=== PATIENT | male | born 1980 | race Caucasian/White ===

== ENCOUNTER 2025-04-28 23:41 | Inpatient (IN) | payer OTHER, SELFPAY ==
[2025-04-28] VITALS (29 sets, daily range): BP systolic 82–121; BP diastolic 33–82; BMI 29.3
[2025-04-28] MEDS: NARCAN 0.4 MG IV (21:30)
[2025-04-28] MEDS: DUONEB 3 ML INH (21:31)
[2025-04-28] MEDS: VENTOLIN NEBULES 2.5 MG INH (21:32)
[2025-04-28] MEDS: NSS 1000 IV (21:33)
[2025-04-28 21:36] LABS: % Basophils 0.2 % (0-2); % Immature Granulocytes 0.4 % (0-0.5); % Lymphocytes 4.2 % (20.5-51.1); % Monocytes 1.7 % (1.7-9.3); % Neutrophils 93.5 % (42.2-75.2); Absolute Immature Granulocytes 0.1 10^3/uL (0-0.05); Absolute Lymphocytes 0.8 10^3/uL (1.2-3.4); Absolute Monocytes 0.3 10^3/uL (0.1-0.6); Absolute Neutrophils 17.7 10^3/uL (1.4-6.5); Hematocrit 49.5 % (39.0-52.0); Mean Corp Hgb Conc. 34.3 g/dL (33.0-37.0); Mean Corpuscular Hgb 30.9 pg (27.0-31.0); Mean Corpuscular Volume 89.8 fL (80.0-94.0); Mean Platelet Volume 9.6 fL (7.4-10.4); Nucleated Red Blood Cells % 0 % (-); Platelet Count 215 10^3/uL (130-400); Red Blood Cell Count 5.51 10^6/uL (4.70-6.10); Red Cell Dist. Width 12.3 % (11.5-14.5); White Blood Cell Count 18.9 10^3/uL (4.8-10.8)
--- NOTE | 2025-04-28 21:41 | ED.GENMED ---
History of Present Illness
General
Chief Complaint: Breathing Problem
Source: patient, records and other (ammonia technician present)
Exam Limitations: altered mental status
Time Seen by Provider: 04/28/25 21:07
Nursing documentation reviewed up to this point in time: agreed with
History of Present Illness
History of Present Illness:
45-year-old male presents from the local longterm where he has been for 3 hours confused hypoxic and respiratory distress
Details are unclear as he is obtunded, requiring supplemental oxygen, follows simple commands only, pupils are 2-3 OU, transfer no shows prescription for Levaquin and steroids unclear if he had received any or how many doses patient apparently told
nursing here that he does not use drugs or alcohol
Past History
Past History
ED Past Medical History: Other
ED Past Surgical History: Other
Social History
Tobacco: Other
Alcohol: Other
Drug: Other
Living: other
Employment: Other
Family History
Family History: Unable to obtain
Review of Systems
Review of Systems
Unable to obtain full review of systems at this time due to: due to acuity
Phy Exam
Physical Exam
Physical Exam:
Physical Exam
General: Minimally responsive 45 male
Neck: Pupils 2-3 OU
Heart: Tachycardic
Lungs: Wheezing diminished in the right
Abdomen: Soft
Neuro: Moves all extremities localize the painful
Skin: no rash
Psychiatric: Flat affect
Extremities: Trace edema no calf no obvious tract
Course
Orders/Labs/Results
Orders:
Orders
04/28/25 21:03
EKG [Electrocardiogram (*1)] Urgent
Reason for Study: Fatigue / Weakness
04/28/25 21:04
EKG- Treatment ONCE
04/28/25 21:07
Ipratropium/Albuterol Sulfate [Duoneb] 3 ml .ROUTE .STK-MED ONE
04/28/25 21:17
Cardiac Monitoring- Treatment ONCE
IV Insert/Care/Rem.- Treatment PRN
0.9% Sodium Chloride 1000 ml [Nss] 1,000 ml IV BOLUS
Albuterol Nebs [Ventolin Nebules] 2.5 mg INH R NOW STA
O2 Therapy [RESP] Stat
Titrate/Wean O2 to maintain O2 sat greater than (%): 98
04/28/25 21:18
Naloxone [Narcan] 0.4 mg .ROUTE .STK-MED ONE
Naloxone [Narcan] 0.4 mg IV NOW STA
CR Chest Portable - 1 View Urgent
Comment:
Reason For Exam: SOB
Reason Study Needs to be Portable: Unable to Transport
04/28/25 21:23
Alcohol Urgent
Complete Blood Count/With Diff Urgent
Comprehensive Metabolic Panel Urgent
Creatine Phosphokinase Urgent
Comment: ADD ON
Lactic Acid Q4H
Comment: CANCEL 2nd LACTIC ACID IF 1st LACTIC ACID IS LESS THAN 2
Blood Culture Q30M
SHIELA Source: Blood/Venous
Specimen Description:
04/28/25 21:24
Ipratropium/Albuterol Sulfate [Duoneb] 3 ml INH R NOW STA
04/28/25 21:31
Piperacillin/Tazo 3.375 Gram [Zosyn] 3.375 gram in 50 ml IV NOW
04/28/25 21:39
Arterial Blood Gas Urgent
%Oxygen/Room Air: NRB
04/28/25 21:41
CT Head W/o Iv Contrast Urgent
Comment:
Reason For Exam: STUPOR
04/28/25 21:58
Blood Culture Q30M
SHIELA Source: Blood/Venous
Specimen Description:
04/28/25 22:07
0.9% Sodium Chloride 1000 ml [Nss] 2,000 ml IV BOLUS
04/28/25 22:28
COVID-19 Antigen Urgent
Source: Nasal Swab
Drug Screen, Urine [Urine Drug Abuse Screen] Urgent
Date Specimen was Collected: 04/28/25
Time Specimen was Collected: 22:25
Fentanyl, Urine Urgent
Influenza A+B Rapid Molecular Urgent
SHIELA Source: Nasal Swab
Specimen Description:
04/28/25 22:37
Vancomycin [Vancocin] 2,000 mg 0.9% Sodium Chloride 500 ml [Nss] 500 ml IV NOW
EEG [Rapid Point of Care EEG (ED/ICU ONLY)] Q1H
Indications for use:: Altered Mental Status
04/28/25 22:45
Rectal Temp- Treatment ONCE
04/28/25 22:54
Add On- LAB Urgent
Tests Added?: CPK
Pham Placement- Treatment ONCE
Reason for insertion: I&O's Critical Care
04/29/25 01:30
Lactic Acid Q4H
Comment: CANCEL 2nd LACTIC ACID IF 1st LACTIC ACID IS LESS THAN 2
Abnormal Lab Results
04/28/25 04/28/25 04/28/25
21:23 21:39 22:28
WBC 18.9 H 10^3/uL
(4.8-10.8)
Abs Immat Gran (auto) 0.1 H 10^3/uL
(0-0.05)
Absolute Neuts (auto) 17.7 H 10^3/uL
(1.4-6.5)
Absolute Lymphs (auto) 0.8 L 10^3/uL
(1.2-3.4)
Neutrophils % 93.5 H %
(42.2-75.2)
Lymphocytes % 4.2 L %
(20.5-51.1)
pH 7.33 L
(7.35-7.45)
pCO2 50 H mmHg
(35-48)
ABG O2 Sat (Measured) 98.8 H %
(94-98)
BUN 28 H mg/dl
(9-20)
Creatinine 1.6 H mg/dL
(0.7-1.3)
Glucose 128 H mg/dl
(70-99)
Total Bilirubin 1.7 H mg/dl
(0.2-1.3)
Urine Opiates Screen Positive H
(Negative)
Ur Tricyclics Screen Positive H
(Negative)
Ur Amphetamines Screen Positive H
(Negative)
U Methamphetamines Scrn Positive H
(Negative)
04/28/25 21:23
04/28/25 21:23
Vital Signs
Initial and Last Documented VS:
Initial Vital Signs
Pulse Resp BP
105 12 101/59
04/28/25 21:03 04/28/25 21:03 04/28/25 21:03
Last Documented Vital Signs
Temp Pulse Resp BP Pulse Ox
98.1 F 92 16 91/60 91
04/28/25 21:11 04/28/25 23:00 04/28/25 23:00 04/28/25 23:00 04/28/25 23:00
MDM/Problems Addressed
Differential Diagnosis Includes:
Hypoxic respiratory failure hypercarbic respiratory failure pneumonia sepsis drug overdose intracerebral hemorrhage aspiration seizure
MDM/Problems Addressed:
Respiratory distress confusion
*Radiology
Radiology exam reviewed: preliminary read by ED provider
*Pulse Oximetry
Patient hypoxic: yes
Comment: 85
*EKG
Interpreted by ED Provider?: Yes
Interpretation: normal
Comparison EKG: no comparison EKG present
Heart Rate: 78
Rate: normal
Ischemia: non-specific ST changes
*Key Worker Interpretation
Rate: normal
Interpretation: normal
Heart Rate: 78
Rhythm: sinus
*Critical Care Note
Total Time (30-74mins, 75-104mins- exclusive of procedures): 30
Update Note
Update Note:
Update check ABG try small dose of Narcan CT of the head broad-spectrum antibiotics following resuscitation follow closely
Update patient still obtunded ABG noted, CT of the head noted, apparently did not respond to Pham catheter placement, UDS noted, will check urgent EEG this evening continue to provide supportive care
ED Attending Note
-
Portions of this chart may have been created with voice recognition software.� Occasional wrong word or��sound alike� substitutions may have occurred due to the inherent limitations of voice recognition software.
Discharge Plan
Departure
Patient Disposition: Admit
Date of Disposition: 04/28/25
Time of Disposition: 22:11
Presentation/result/management discussed w/ accepting MD/DO: Hospitalist
Condition: Serious
Covid-19: Not Applicable
Discharge Problem:
Sepsis
Prescriptions:
No Action
Unobtainable
0
Referrals:
UNKNOWN - PT DOES,NOT KNOW [Family Provider]
Interventions
Interventions:
*Risk Screen - Suicide Last Done: 04/28/25 21:15
*General Assessment Last Done: 04/28/25 21:15
*Neglect/Abuse Screening Last Done: 04/28/25 21:15
*ED COVID-19 Vaccine History Last Done: 04/28/25 21:15
Discharge Date and Time
Print Language: SLOVAK
[2025-04-28 21:44] LABS: Lactic Acid 1.6 mmol/L (0.7-2.0)
[2025-04-28 21:52] LABS: B.E. -0.5 mmol/L; HCO3 26.4 mmol/L (21-28); O2 Saturation % 98.8 % (94-98); PCO2 50 mmHg (35-48); PO2 95 mmHg (83-108); pH 7.33 (7.35-7.45)
[2025-04-28 21:54] LABS: ALT (SGPT) 37 U/L (0-50); AST (SGOT) 28 U/L (17-59); Albumin 4.3 g/dl (3.5-5.0); Alcohol None Detected; Alkaline Phosphatase 101 U/L (38-126); Blood Urea Nitrogen 28 mg/dl (9-20); Calcium 9.4 mg/dl (8.4-10.2); Carbon Dioxide 25 mmol/L (22-30); Chloride 101 mmol/L (98-107); Estimated Creatinine Clearance 59 ml/min; Glucose 128 mg/dl (70-99); Potassium 4.2 mmol/L (3.5-5.1); Sodium 136 mmol/L (135-145); Total Bilirubin 1.7 mg/dl (0.2-1.3); Total Protein 8.1 g/dl (6.3-8.2); eGFR 54.15
[2025-04-28] MEDS: NSS 2000 IV (22:25)
[2025-04-28] MEDS: ZOSYN 50 IV (22:29)
[2025-04-28 22:48] LABS: Amphetamines Positive (Negative); Barbiturates Negative (Negative); Benzodiazepines Negative (Negative); Buprenorphine Negative (Negative); Cocaine Negative (Negative); Marijuana Negative (Negative); Methadone Negative (Negative); Methamphetamines Positive (Negative); Opiates Positive (Negative); Phencyclidine Negative (Negative); Tricyclic Antidepressants Positive (Negative)
[2025-04-28 22:56] LABS: COVID-19 Antigen Negative (Negative)
--- NOTE | 2025-04-28 23:01 | HPS.HSE ---
Family Physician
-
Family Physician: NOT KNOW UNKNOWN - PT DOES
Chief Complaint
-
Resp Distress
History of Present Illness
Patient is a 45y M with unknown PMH who presents to ED from [facility] for evaluation of respiratory distress. History obtained from [facility] staff / ED staff. Patient was arrested about 5 hours prior to my exam / 3 hours prior to arrival in the ED.
He was awake and alert during his initial intake. Patient was reportedly wheezing, coughing and complaining of SOB during this process. He was prescribed Levaquin and steroid taper by [facility] provider - though it is not clear whether he received
any doses of these. He became progressively more SOB and was brought to the ED for evaluation.
On initial arrival in the ED, patient was awake and communicating with staff. He has since become more unresponsive.
At the time of my examination, he is asleep with minimal response to noxious stimuli. He reportedly called out in discomfort when Pham was being placed - but quickly fell back to sleep.
No additional history is obtainable at this time.
Medical History
Past Medical History
Past Medical History: Reports Other
Additional Past Medical History:
Unknown
Past Surgical History: Reports Other
Additional Past Surgical History:
Unknown
Social History
Unable to obtain full social history at this time due to: Patient Non-verbal
Family History
Family History: Unable to Obtain
Allergies / Home Medications
Allergies reflects when Allergies were last updated in [email or web address].
Home Medications with original date entered in [email or web address]
Allergy/Medication List:
Allergies
Allergy/AdvReac Type Severity Reaction Status Date / Time
No Known Allergies Allergy Unverified 04/28/25 22:01
Home Medications
Unobtainable 04/28/25
Review of Systems
-
Unable to obtain full review of systems at this time due to: Patient Non-verbal
Physical Exam
Vital Signs
Vital Signs
Temp Pulse Resp BP Pulse Ox
98.1 F 97 17 88/56 92
04/28/25 21:11 04/28/25 22:00 04/28/25 22:00 04/28/25 22:00 04/28/25 22:00
Physical Exam
General: Other (45y M poorly responsive. Withdraws from noxious stimuli briefly.)
HEENT: Other (Pinpoint, symmetric pupils. Neck supple.)
Respiratory: Other (Coarse rhonchi at R base.)
Cardiac: S1/S2 and Regular Rhythm; No Murmur
GI: Soft, Non Tender, Non Distended and Normal Bowel Sounds
Genito-urinary: Other (Pham in place draining small amount of dark urine.)
Musculoskeletal: No Clubbing, No Cyanosis and No Edema
Laboratory Results
-
04/28/25 21:23
04/28/25 21:23
Laboratory Results
pH 7.33 (7.35-7.45) L 04/28/25 21:39
pCO2 50 mmHg (35-48) H 04/28/25 21:39
pO2 95 mmHg (83-108) 04/28/25 21:39
HCO3 26.4 mmol/L (21-28) 04/28/25 21:39
Lactic Acid 1.6 mmol/L (0.7-2.0) 04/28/25 21:23
Total Bilirubin 1.7 mg/dl (0.2-1.3) H 04/28/25 21:23
AST 28 U/L (17-59) 04/28/25 21:23
ALT 37 U/L (0-50) 04/28/25 21:23
Alkaline Phosphatase 101 U/L (38-126) 04/28/25 21:23
Impression/Plan
-
A/P: Patient is a 45y M with no known PMH who presents to ED from local [facility] for evaluation of respiratory distress.
RLL Pneumonia
Acute Hypoxemic Respiratory Failure secondary to the above
Sepsis secondary to the above
- Admit to ICU for further evaluation and treatment.
- Patient presents with leukocytosis, tachycardia, tachypnea and R base pneumonia on CXR / exam.
- IV abx with Vanco / Zosyn for now.
- Supportive care including IVFs +/- pressor support to maintain perfusion.
- Supplemental O2.
- Follow for clinical improvement.
- Follow temperature curve, culture data, etc.
Polysubstance Abuse / Suspected Overdose
Acute TME secondary to the above
- Patient reportedly denied drug use to staff on initial arrival.
- CT head in the ED without acute abnormality.
- UDS done here in the ED positive for: opiates, TCAs, amphetamines / methamphetamines.
- Opioid overdose seems likely based on constricted pupils, unresponsiveness, etc.
- Supportive care. Narcan PRN for hypoventilation.
- Monitor for evidence of seizure activity due to TCA overdose.
- Monitor for evidence of withdrawal symptoms / syndromes.
RENALDO v CKD
- SCr = 1.6 with no prior baseline for comparison.
- Suspect degree of RENALDO due to sepsis, etc.
- IVF support as noted above.
- Follow for changes in renal function.
DVT Prophylaxis: Subcut Heparin
Code Status: Full
[2025-04-28 23:25] LABS: Creatine Phosphokinase 113 U/L (55-170)
--- NOTE | 2025-04-28 23:40 | EDRN ---
Despite being on 6LNC, pt.'s pulse ox. continuously drops to 85%. Pt. encouraged to take deep breaths, but pulse ox. not rising above 92% on 6LNC. Respiratory to bedside, placed pt. on high flow nasal cannula at 50L 75%. Pulse ox. now 96%.
[2025-04-28] MEDS: VANCOCIN 540 MG IV (23:48)
[2025-04-29] VITALS (55 sets, daily range): BP systolic 87–140; BP diastolic 57–100; BMI 29.6
[2025-04-29] LABS: Fentanyl, Urine Negative (Negative)
[2025-04-29 00:09] LABS: TSH 1.23 uIU/ml (0.47-4.68)
[2025-04-29] MEDS: LR 1000 IV ×3 (01:05→16:01)
[2025-04-29 03:10] LABS: Fentanyl, Urine Negative (Negative)
--- NOTE | 2025-04-29 05:30 | PTCARENOTE ---
Patient received from ED, drowsy, oriented x3. NSR, afebrile, blood pressure as documented. No edema noted. lungs with rhonch, wheezing, pulse ox 96% on HFNC 50L/70%. Pham catheer draining yellow urine. #20 g in right hand with IVF infusing as
ordered, #20 g in left hand flushed and patent. CHG bath given
[2025-04-29 05:39] LABS: Hematocrit 43.7 % (39.0-52.0); Hemoglobin 14.9 g/dL (13.0-18.0); Mean Corp Hgb Conc. 34.1 g/dL (33.0-37.0); Mean Corpuscular Hgb 30.8 pg (27.0-31.0); Mean Corpuscular Volume 90.5 fL (80.0-94.0); Mean Platelet Volume 10.1 fL (7.4-10.4); Platelet Count 181 10^3/uL (130-400); Red Blood Cell Count 4.83 10^6/uL (4.70-6.10); Red Cell Dist. Width 12.5 % (11.5-14.5); White Blood Cell Count 15.6 10^3/uL (4.8-10.8)
--- NOTE | 2025-04-29 05:58 | W.PN.SEPSIS ---
Sepsis
Vital Signs
Temp Pulse Resp BP Pulse Ox
98.0 F 84 17 102/69 95
04/29/25 05:39 04/29/25 03:00 04/29/25 03:00 04/29/25 03:00 04/29/25 05:39
Physical Exam
Physical Exam:
A focused exam was performed after fluid resuscitation.
Capillary Refill
Bilateral Upper Extremity:
Iwlian Time: Less than 3 sec
Bilateral Lower Extremity:
Wilian Time: Less than 3 sec
Pulse Evaluation
Bilateral Radial:
Pulse Evaluation: Present
Bilateral Dorsalis Pedis:
Pulse Evaluation: Present
[2025-04-29] MEDS: ZOSYN 50 IV ×3 (06:03→17:04)
[2025-04-29] MEDS: HEPARIN 5000 UNITS SC ×2 (06:03→16:01)
[2025-04-29 06:09] LABS: ALT (SGPT) 30 U/L (0-50); AST (SGOT) 23 U/L (17-59); Albumin 3.3 g/dl (3.5-5.0); Alkaline Phosphatase 70 U/L (38-126); Blood Urea Nitrogen 23 mg/dl (9-20); Calcium 8.1 mg/dl (8.4-10.2); Carbon Dioxide 24 mmol/L (22-30); Chloride 110 mmol/L (98-107); Direct Bilirubin 0.3 mg/dl (0.0-0.4); Estimated Creatinine Clearance 105 ml/min; Glucose 136 mg/dl (70-99); Magnesium 2.1 mg/dl (1.6-2.3); Phosphorus 3.2 mg/dl (2.5-4.5); Sodium 138 mmol/L (135-145); Total Bilirubin 0.9 mg/dl (0.2-1.3); Total Protein 6.2 g/dl (6.3-8.2); eGFR > 60.00
--- NOTE | 2025-04-29 07:00 | PHA.VAN.IN ---
Assessment
- Assessment
Renal Function: Unknown baseline
Concomitant Antimicrobials: piperacillin/tazobactam
AUC Dosing Plan
- Dosing Variables
Dosing Weight (kg): 90
Dosing CrCl (ml/min): 105
Vd coefficient (L/kg): 0.7
- Empiric Dosing
Initial / Loading Dose: 2000mg - 04/28 23:48
Maintenance Regimen: Vanc 1500mg Q12H starting at 1800
Estimated AUC (mcg*h/mL): 556
Estimated Peak (mcg*h/mL): 35.7
Estimated Trough (mcg/ml): 13.7
Estimated Half Life (H): 7.6
- Monitoring
No levels ordered at this time: consider levels in next few days
Pharmacokinetics Vancomycin I
- -
Patient Age: 45
Patient Sex: Male
Vancomycin Day #: 1
Indication: Pulmonary/Respiratory
Requesting Provider: Dr. Rider
Pertinent Antimicrobial Allergies:
NKDA
Height / Weight:
Height 5 ft 9 in
Actual Weight 89.8 kg
Pertinent Past Medical History: polysubstance use disorder
- Vital Signs / Lab Results
Temp Pulse Resp BP Pulse Ox
98.0 F 84 17 102/69 95
04/29/25 05:39 04/29/25 03:00 04/29/25 03:00 04/29/25 03:00 04/29/25 05:39
Lab Results - Hematology
04/28/25 04/29/25
21:23 05:29
WBC 18.9 H 15.6 H
Lab Results - Chemistry
04/28/25 04/29/25
21:23 05:29
BUN 28 H 23 H
Creatinine 1.6 H 0.9
Estimated Creat Clear 59 105
Albumin 4.3 3.3 L
04/28/25 04/29/25
21:23 01:30
Lactic Acid 1.6 Cancelled
Microbiology Results
04/28/25 22:28 Influenza Types A & B (THOMAS) - Final
Nasal Swab Negative for Influenza A & B, NAAT
Negative results must be combined with clinical observations
and patient history.
Nucleic Acid Amplification test (NAAT)performed on the
[employer] platform.
--- NOTE | 2025-04-29 07:22 | W.PN.HOSP.TC ---
Today's Communication/Plan
-
see plan
Assessment / Plan
Assessment / Plan
45y M with no known PMH who presents to ED from local [facility]way for evaluation of respiratory distress.
Gen: NAD, AAOx3.
Eyes: EOMI, PERRLA, no scleral icterus.
Neck: supple.
CV: RRR, +S1/S2, no m/r/g.
Resp: CTAB, no rales, wheezes, or rhonchi.
Abd: +BS, soft, NT, ND
Skin: No rashes.
Neuro: CN 2-12 intact, non-focal.
Psych: Normal mood and affect.
CXR: No acute disease of the chest. Limited inspiration.
CT Head: No acute intracranial abnormality.
Sepsis and acute Hypoxemic Respiratory Failure secondary to the above:
-p/w with leukocytosis, tachycardia, tachypnea
-CXR without PNA (although AP film only)
-currently on high flow
-COVID/Flu NEG
-check CTA chest
-cont IV Vanco/Zosyn
-cont IVFs
-cont Levophed
-follow BCxs
Acute toxic metabolic encephalopathy due to polysubstance abuse with suspected overdose:
-UDS opiates, tricyclics, amphetamines
-CT head in the ED without acute abnormality.
-Opioid overdose seems likely based on constricted pupils, unresponsiveness, on arrival
-Supportive care. Narcan PRN for hypoventilation.
-Monitor for evidence of seizure activity due to TCA overdose.
-Monitor for evidence of withdrawal symptoms/syndromes.
-currently AAOx3
RENALDO:
-resolved with IVFs
FULL/Heparin
Anticipated Discharge: > 48 hours
Subjective/Interval History
-
Date of Service: April 29, 2025
Reports mild SOB.
Objective Data
-
Labs:
Laboratory Results
04/28/25 04/28/25 04/29/25
21:23 21:39 05:29
WBC 18.9 H 15.6 H
Hgb 17.0 14.9
Hct 49.5 43.7
Plt Count 215 181
HCO3 26.4
Sodium 136 138
Potassium 4.2 Pending
Chloride 101 110 H
Carbon Dioxide 25 24
BUN 28 H 23 H
Creatinine 1.6 H 0.9
Glucose 128 H 136 H
Calcium 9.4 8.1 L
Total Bilirubin 1.7 H 0.9
AST 28 23
ALT 37 30
Alkaline Phosphatase 101 70
Vital Signs:
Vital Signs
Temp Pulse Resp BP Pulse Ox
97.9 F 84 17 102/69 95
04/29/25 07:19 04/29/25 03:00 04/29/25 03:00 04/29/25 03:00 04/29/25 05:39
I&O
04/28/25 04/29/25 04/30/25
06:59 06:59 06:59
Intake Total 200 / 350 150 / 150
Output Total 750 / 1200 450 / 450
Balance -550 / -850 -300 / -300
--- NOTE | 2025-04-29 08:29 | CON.INTV ---
Consultation
Consultation Request
Date/Time Consultation Requested: 04/29/2025550
Date/Time Consultation Performed: 04/29/2025826
Requesting Provider: OUMOU Ivey
Performing Provider: Dr. Burrell
Reason for Consultation: Hypoxia
Medical History
-
Chief Complaint: Altered mental status/hypoxic
History of Present Illness:
45-year-old male with a past medical history of polysubstance abuse and history of pelvic floor dysfunction presented with altered mental status and respiratory distress. Patient was arrested prior to arrival and became increasingly more altered
and was brought to the hospital for further evaluation. He was reportedly wheezing, coughing and complaining of shortness of breath. He reportedly was prescribed Levaquin and steroids but unclear if he started these medications. Due to worsening
SOB he was brought to the hospital for evaluation. He became increasingly more unresponsive. Initially he was afebrile with heart rate 105, respiratory rate 12, BP 101/59 and saturating 85% on room air. He was placed onto high flow nasal cannula
with saturations improving to 95%. Initial labs showed leukocytosis to 18.9, mild respiratory acidosis with pH 7.33, pCO2 50, creatinine 1.6, glucose 128, T. bili 1.7, UDS positive for opiates, TCA, amphetamines and methamphetamines. COVID-19
antigen was negative. Blood cultures were collected, and CXR did not show any obvious cardiopulmonary disease. CT head showed no acute intracranial abnormality. CTA of the chest was obtained given his significant hypoxia which showed severe
bilateral pneumonia. He was given 2 L of NS 0.9% in the ER + DuoNebs, albuterol, Zosyn as well as Narcan. He was admitted to the ICU for further care and silverware assembler services consulted for additional management/recommendations.
When I saw the patient this morning, he was much more awake and calm. Patient is a poor historian currently, possibly worsened due to his drowsiness. He was able to be weaned off of high flow nasal cannula down to midflow and he did not feel short
of breath during this transition. He is not really sure what happened but he does say that he has been feeling short of breath and more fatigued over the last several days. He denies any recent sick contacts or recent travel. Currently denies
cough, chest pain, SHRESTHA, nausea, fevers or chills.
PMHx: Polysubstance abuse, Hx of pelvic floor dysfunction
PSHx: Unobtainable (patient is a poor historian currently)
Past Medical History
Past Medical History: Other (Above as per HPI)
Past Surgical History: Other (Above as per HPI)
Social History
Tobacco: Non-smoker
Alcohol: None
Drug: Narcotics
Living: Long Term
Family History
Family History: Reviewed & Not Pertinent
Allergies / Home Medications
Allergies
Allergy/AdvReac Type Severity Reaction Status Date / Time
No Known Allergies Allergy Unverified 04/28/25 22:01
Home Medications
�Medication �Instructions �Recorded �Confirmed �Last Taken �Type
Unobtainable 04/28/25 04/28/25 Unknown History
Review of Systems
-
History Source: Patient
All other systems: Negative unless noted
Vitals / Labs / Diagnostic Testing
Vital Signs
Temp Pulse Resp BP Pulse Ox
97.9 F 84 17 102/69 97
04/29/25 07:19 04/29/25 03:00 04/29/25 03:00 04/29/25 03:00 04/29/25 09:56
Lab Data
04/29/25 05:29
04/29/25 05:29
Laboratory Results
04/28/25
21:39
pH 7.33 L
pCO2 50 H
pO2 95
HCO3 26.4
O2 Delivery Level
Microbiology
04/28/25 22:28 Nasal Swab Influenza Types A & B (THOMAS) - Final
Negative for Influenza A & B, NAAT
Negative results must be combined with clinical observations
and patient history.
Nucleic Acid Amplification test (NAAT)performed on the
[employer] platform.
Diagnostic Testing:
Physical Exam
-
HEENT: Normocephalic and Anicteric
Cardiovascular: S1/S2, Peripheral Edema (negative) and Other (Tachycardic)
Respiratory: Wheeze (negative), Rales (negative) and Rhonchi (Bilaterally in the lower to mid lung myers)
GI: Soft, Non Distended, Non Tender and Normal Bowel Sounds
Neurology: Awake, Alert, Tremors (negative) and Other (Drowsy at times)
Skin: Warm and Dry
General: Respiratory Distress (negative), Comfortable, Fever (negative) and Chills (negative)
Assessment
-
Assessment: 45-year-old male with a past medical history of polysubstance abuse and history of pelvic floor dysfunction presented with altered mental status and respiratory distress. Patient was arrested prior to arrival and became increasingly
more altered and was brought to the hospital for further evaluation. He was reportedly wheezing, coughing and complaining of shortness of breath. He reportedly was prescribed Levaquin and steroids but unclear if he started these medications. Due
to worsening SOB he was brought to the hospital for evaluation. He became increasingly more unresponsive. Initially he was afebrile with heart rate 105, respiratory rate 12, BP 101/59 and saturating 85% on room air. He was placed onto high flow
nasal cannula with saturations improving to 95%. Initial labs showed leukocytosis to 18.9, mild respiratory acidosis with pH 7.33, pCO2 50, creatinine 1.6, glucose 128, T. bili 1.7, UDS positive for opiates, TCA, amphetamines and methamphetamines.
COVID-19 antigen was negative. Blood cultures were collected, and CXR did not show any obvious cardiopulmonary disease. CT head showed no acute intracranial abnormality. CTA of the chest was obtained given his significant hypoxia which showed
severe bilateral pneumonia. He was given 2 L of NS 0.9% in the ER + DuoNebs, albuterol, Zosyn as well as Narcan. He was admitted to the ICU for further care and silverware assembler services consulted for additional management/recommendations.
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
Impression:
#Multifocal pneumonia involving bases + RML
#Acute encephalopathy due to TME (sepsis)
#Leukocytosis due to sepsis
#Acute respiratory failure with hypoxia + hypercapnia requiring high flow nasal cannula, now down to mid flow nasal cannula
#RENALDO
#Polysubstance abuse with amphetamines, methamphetamines, and opiates seen on his urine toxicology screen
Plan:
- Patient was admitted to ICU given respiratory distress requiring high flow nasal cannula and tachypnea with altered mental status
- Amphetamines seen in urine drug screen as well as opiates
- He is currently under arrest and corrections officers x2 are at bedside
- As of 04/29, he is much more stable, awake, alert, speaking to me without conversational dyspnea, and now down to 4-5 L/min via midflow nasal cannula breathing comfortably
- Continue with antibiotics with Vanco/Zosyn - would treat for total of 7 days; if MRSA swab is negative then would DC IV vancomycin
- Ideally would narrow antibiotics over the next 24-48 hours depending on culture results and rate of clinical improvement
- Trend WBC and monitor temperature curve
- Continue IVF with LR - -> lower from 150 cc/hour to 100cc/hr
- Follow-up blood cultures x 2 (collected 04/28), and check respiratory culture if patient can produce a decent sample; check urine antigens for Legionella + strep pneumonia
- Maintain SpO2 >90-94% with supplemental oxygen and decrease as tolerated
- Continue with aspiration precautions given he does still remain sleepy/drowsy; keep HOB >30-45�
- If resting saturations are <96% on room air then check ambulatory pulse oximetry prior to discharge
- Monitor symptoms and if he develops a cough then can use mucolytics if needed
- Ideally would repeat imaging in 4-6 weeks to assure his pneumonia resolves however considering he is a prisoner this may not be feasible
- Maintain MAP>65
- Trend sCr and monitor UOP
- His serum creatinine has already markedly improved which is an encouraging sign
- Renally dose all meds/ABx
- Replete electrolytes with K>4, Mg>2
- Maintain euglycemia with goal BG 140-180
- Trend H/H and transfuse if needed to keep Hb>7g/dL; keep plt>20k, unless there is concern for bleeding then keep plt>50k
- prn nebulized bronchodilators - not currently bronchospastic
- Incentive spirometer encouraged 10x per hour for at least 4 hrs a day
- Consider psychiatry consult given his history of polysubstance abuse
- Monitor for signs of withdrawal as there were opiates + amphetamines seen on his urine drug screen. He is still drowsy and is a poor historian so once he is more awake need to obtain a more detailed social history
- SETTER HELPER consult placed given his hypoxia
- DVT ppx: HSQ
Given patient's marked improvement in clinical status and hypoxia, he is stable for downgrade out of ICU to telemetry. No additional recommendations at this time. Environmental Marketing Representative/Pulmonary service will now sign off. Thank you for allowing us to be
involved in the care of this patient. Please reconsult if there are any additional questions/concerns, or if patient's respiratory status deteriorates.
Total time spent today was 57 minutes for this encounter. Time includes reviewing laboratory test/imaging results, reviewing pertinent medical records, obtaining and reviewing medical history, performing an appropriate exam, ordering medications,
tests and procedures. Time also includes documentation of this encounter, coordinating patient care and communicating with other healthcare professionals. Total time does not include separately billed tests performed on this date of service.
Data:
CTA chest 04/29/2025: SEVERE BILATERAL PNEUMONIA.
Patient was seen and evaluated on 04/29/2025
--- NOTE | 2025-04-29 08:55 | PTCARENOTE ---
Pt received in bed @ 0700. Drowsy and lethargic. RASS -1. Awakes to verbal stimuli and able to answer questions. AAOx3. Denying pain. Sinus rhythm on telemtry monitor. Periods of bradycardia observed at beginning of shift coinciding with apnea
events; none observed since. Trace B/L LE edema. SaO2 98% on High Flow NC 50L/70% FiO2. Inspiratory and expiratory wheeze auscultated. Placed on 6L NC; SaO2 94%. Abdomen round, hyperactive bowel sounds. Pham catheter draining clear yellow urine. LR
infusing @ 150ml/hr.
--- NOTE | 2025-04-29 10:58 | CM ---
CM reviewed chart
Pt from [facility] and remains under custody
Pt currently in ICU with high flow O2 needs
On withdrawal protocol
Discharge Disposition- return to [facility]
Phone- [phone] Fax- [phone]
--- NOTE | 2025-04-29 11:37 | PTCARENOTE ---
Pt reassessed. RASS remains -1. Sleeping but rouses easily. Able to follow commands have converse. O2 weaned to 2L. SaO2 95%. Chest CT completed.
--- NOTE | 2025-04-29 14:01 | W.RAPID.EEG ---
Rapid EEG
-
Procedure Date: 04/28/25
Results:
Point of Care EEG Procedure Note
Patient name: WILVER CABRERA
Clinical Correlation / Impressions:
� Throughout the recording no epileptiform discharges or seizures were observed.
Medical ID: [id number]
Date of : 1980
Age: 45
Recording 1 Duration: 2025-04-28 23:34:11 - 2025-04-29 00:47:26
Recording Total Time: 01:13:15 (73 minutes)
Ordering Physician: PRUDENCE
Recording Technique: This EEG was obtained using a 10 lead, 8 channel circumferential rapid EEG with no parasagittal coverage. Performed with [employer] Status Epilepticus Monitor, ICD-10 EK33K12
Clinical History: WILVER CABRERA is a 45 year old Undifferentiated AMS patient undergoing EEG to screen for non-convulsive status epilepticus.
Primary Indication: Undifferentiated AMS
Location: ED
Findings:
Report prepared by: Srinath Torres
Report generated on: April 29, 2025 2:00 PM [facility]
--- NOTE | 2025-04-29 16:36 | PTCARENOTE ---
Pt reassessed. No changes observed. RASS -1. Sleeping, but rouses easily and able to converse and follow directions. Unable to wean to room air and keep SaO2 > 92%. SaO2 96% on 2L NC. Unable to produce sputum sample for culture. Instructed on
expectoration and sample cup provided.
[2025-04-29] MEDS: VANCOCIN 530 MG IV (17:40)
--- NOTE | 2025-04-29 20:00 | PTCARENOTE ---
Patient received in bed, asleep but awakens easily, oriented x3. NSR on monitor, afebrile, blood pressure as documented. Palpable pulses, slightly diaphoretic. Lungs with rhonchi bilaterally, pulse ox 96% on 2L. Denies SOB. Abdomen round.
Pham catheter draining yellow urine. #20 g in left hand, #20 g in right hand with IVF infusing as ordered, #20 g in RAC flushed and patent. Guards at bedside, call morales within reach
[2025-04-30] VITALS (10 sets, daily range): BP systolic 126–158; BP diastolic 57–103; PULSE 105–114; O2SAT 95
[2025-04-30] MEDS: ZOSYN 50 IV ×5 (00:04→23:29)
[2025-04-30] MEDS: HEPARIN 5000 UNITS SC ×4 (00:04→23:28)
[2025-04-30] MEDS: LR 1000 IV ×2 (00:05→06:19)
--- NOTE | 2025-04-30 01:01 | PTCARENOTE ---
Pham catheter removed, patient transferred to telemetry
[2025-04-30] MEDS: VANCOCIN 530 MG IV (06:11)
--- NOTE | 2025-04-30 10:02 | W.PN.HOSP.TC ---
Today's Communication/Plan
-
see plan
Assessment / Plan
Assessment / Plan
45y M with no known PMH who presents to ED from local [facility] for evaluation of respiratory distress.
Gen: NAD, AAOx3.
Eyes: EOMI, PERRLA, no scleral icterus.
Neck: supple.
CV: remains RRR, +S1/S2, no m/r/g.
Resp: B/L rhonchi.
Abd: +BS, soft, NT, ND
Skin: No rashes.
Neuro: CN 2-12 intact, non-focal.
Psych: Normal mood and affect.
04/29/25 11:44 Urine Legionella Urinary Antigen - Final
Negative for Legionella pneumophila Serogroup 1 antigen.
A negative result does not rule out the possiblity of
Legionella infection due to other serogroups or species of
Legionella. Clinical correlation is recommended.
04/29/25 11:44 Urine Streptococcus pneumoniae Antigen (M - Final
Negative for Streptococcus pneumoniae antigen.
A negative result does not exclude infection with
Streptococcus pneumoniae. Clinical correlation is
recommended.
04/28/25 21:58 Blood/Venous Blood Culture - Preliminary
No Growth in 24 hours- Final report to follow
04/28/25 21:23 Blood/Venous Blood Culture - Preliminary
No Growth in 24 hours- Final report to follow
04/29/25 07:41 Nose Nasal Screen MRSA (PCR) - Final
MRSA not detected - performed by PCR methodology.
04/28/25 22:28 Nasal Swab Influenza Types A & B (THOMAS) - Final
Negative for Influenza A & B, NAAT
Negative results must be combined with clinical observations
and patient history.
Nucleic Acid Amplification test (NAAT)performed on the
[employer] platform.
CXR: No acute disease of the chest. Limited inspiration.
CT Head: No acute intracranial abnormality.
CT chest: SEVERE BILATERAL PNEUMONIA.
Septic shock and acute Hypoxemic Respiratory Failure due to severe B/L PNA:
-p/w with leukocytosis, tachycardia, tachypnea
-with acute toxic metabolic encephalopathy and unresponsiveness on arrival it is very likely the patient aspirated prior to arrival (aspiration pneumonia)
-imaging above
-was on high flow, now on 1.5L NC O2
-was on Levophed, now off
-s/p IVFs
-COVID/Flu NEG
-strep/legionella UAgs NEG
-BCxs NGTD
-cont Zosyn, stop Vanco
-speech eval noted, reg diet/thins
Acute toxic metabolic encephalopathy due to polysubstance abuse with suspected overdose:
-UDS opiates, tricyclics, amphetamines
-CT head in the ED without acute abnormality.
-Opioid overdose seems likely based on constricted pupils, unresponsiveness, on arrival
-Supportive care. Narcan PRN for hypoventilation.
-Monitor for evidence of seizure activity due to TCA overdose.
-Monitor for evidence of withdrawal symptoms/syndromes.
-currently AAOx3, resolved
RENALDO:
-resolved with IVFs
FULL/Heparin
Anticipated Discharge: 24 - 48 hours
Subjective/Interval History
-
Date of Service: April 30, 2025
Objective Data
-
Vital Signs:
Vital Signs
Temp Pulse Resp BP Pulse Ox
98.8 F 100 18 137/91 98
04/30/25 07:00 04/30/25 07:00 04/30/25 07:00 04/30/25 07:00 04/30/25 07:00
I&O
04/29/25 04/30/25 05/01/25
06:59 06:59 06:59
Intake Total 200 / 350 3490 / 3490
Output Total 750 / 1200 2915 / 2915
Balance -550 / -850 575 / 575
--- NOTE | 2025-04-30 10:04 | PTOTSP ---
SPEECH THERAPY SWALLOW EVALUATION:
Patient exhibits grossly functional oropharyngeal swallow at this time. No significant history of risk factors for dysphagia. However, given severe pneumonia and Right lower lobe involvement, would recommend brief ST follow up to ensure adequate
diet tolerance and determine indication for instrumental assessment of swallowing. Recommend Regular texture diet, thin liquids. Meds with liquid as best tolerated. General aspiration precautions.
RECOMMEND:
1) Regular texture diet, thin liquids
2) Meds with liquid as best tolerated
3) General aspiration precautions
4) ST follow up to ensure adequate diet tolerance and determine indication for instrumental assessment of swallowing
[2025-05-01] VITALS (7 sets, daily range): BP systolic 121–149; BP diastolic 87–107; BMI 28.8
--- NOTE | 2025-05-01 01:57 | PTCARENOTE ---
patient was asked multiple times (and given the supplies) for oral hygiene, but the patient's preference was to do it in the morning.
[2025-05-01] MEDS: ZOSYN 50 IV ×4 (05:41→23:27)
[2025-05-01] MEDS: HEPARIN 5000 UNITS SC ×3 (07:45→23:27)
[2025-05-01 08:55] LABS: Hematocrit 46.9 % (39.0-52.0); Hemoglobin 16.1 g/dL (13.0-18.0); Mean Corp Hgb Conc. 34.3 g/dL (33.0-37.0); Mean Corpuscular Volume 90.2 fL (80.0-94.0); Mean Platelet Volume 9.9 fL (7.4-10.4); Platelet Count 205 10^3/uL (130-400); Red Cell Dist. Width 12.1 % (11.5-14.5); White Blood Cell Count 7.7 10^3/uL (4.8-10.8)
[2025-05-01 09:33] LABS: Blood Urea Nitrogen 12 mg/dl (9-20); Calcium 8.8 mg/dl (8.4-10.2); Carbon Dioxide 30 mmol/L (22-30); Chloride 103 mmol/L (98-107); Estimated Creatinine Clearance > 125 ml/min; Glucose 89 mg/dl (70-99); Potassium 4.1 mmol/L (3.5-5.1); Sodium 140 mmol/L (135-145); eGFR > 60.00
--- NOTE | 2025-05-01 12:09 | W.PN.HOSP.TC ---
Today's Communication/Plan
-
wean O2
prn bowel regimen
continue IV Zosyn
Assessment / Plan
Assessment / Plan
45y M with no known PMH who presents [facility] ED from local detention for evaluation of respiratory distress.
Gen: NAD, AAOx3.
Eyes: EOMI, PERRLA, no scleral icterus.
Neck: supple.
CV: remains RRR, +S1/S2, no m/r/g.
Resp: B/L rhonchi.
Abd: +BS, soft, NT, ND
Skin: No rashes.
Neuro: CN 2-12 intact, non-focal.
Psych: Normal mood and affect.
04/29/25 11:44 Urine Legionella Urinary Antigen - Final
Negative for Legionella pneumophila Serogroup 1 antigen.
A negative result does not rule out the possiblity of
Legionella infection due to other serogroups or species of
Legionella. Clinical correlation is recommended.
04/29/25 11:44 Urine Streptococcus pneumoniae Antigen (M - Final
Negative for Streptococcus pneumoniae antigen.
A negative result does not exclude infection with
Streptococcus pneumoniae. Clinical correlation is
recommended.
04/28/25 21:58 Blood/Venous Blood Culture - Preliminary
No Growth in 24 hours- Final report to follow
04/28/25 21:23 Blood/Venous Blood Culture - Preliminary
No Growth in 24 hours- Final report to follow
04/29/25 07:41 Nose Nasal Screen MRSA (PCR) - Final
MRSA not detected - performed by PCR methodology.
04/28/25 22:28 Nasal Swab Influenza Types A & B (THOMAS) - Final
Negative for Influenza A & B, NAAT
Negative results must be combined with clinical observations
and patient history.
Nucleic Acid Amplification test (NAAT)performed on the
[employer] platform.
CXR: No acute disease of the chest. Limited inspiration.
CT Head: No acute intracranial abnormality.
CT chest: SEVERE BILATERAL PNEUMONIA.
Septic shock and acute Hypoxemic Respiratory Failure due to severe B/L PNA:
-p/w with leukocytosis, tachycardia, tachypnea
-with acute toxic metabolic encephalopathy and unresponsiveness on arrival it is very likely the patient aspirated prior to arrival (aspiration pneumonia)
-imaging above
-was on high flow, now on 1.5L NC O2
-was on Levophed, now off
-s/p IVFs
-COVID/Flu NEG
-strep/legionella UAgs NEG
-BCxs NGTD
-cont Zosyn day 02/06
-speech eval noted, reg diet/thins
Acute toxic metabolic encephalopathy due to polysubstance abuse with suspected overdose:
-UDS opiates, tricyclics, amphetamines
-CT head in the ED without acute abnormality.
-Opioid overdose seems likely based on constricted pupils, unresponsiveness, on arrival
-Supportive care. Narcan PRN for hypoventilation.
-Monitor for evidence of seizure activity due to TCA overdose.
-Monitor for evidence of withdrawal symptoms/syndromes.
-currently AAOx3, resolved
RENALDO:
-resolved with IVFs
FULL/Heparin
Anticipated Discharge: Within 24 hours
Subjective/Interval History
-
Date of Service: May 01, 2025
resting comfortably
denies SOB
on 1.5L NC
Objective Data
-
Labs:
Laboratory Results
05/01/25 05/01/25
08:48 08:49
WBC 7.7
Hgb 16.1
Hct 46.9
Plt Count 205
Sodium 140
Potassium 4.1
Chloride 103
Carbon Dioxide 30
BUN 12
Creatinine 0.7
Glucose 89
Calcium 8.8
Vital Signs:
Vital Signs
Temp Pulse Resp BP Pulse Ox
98.4 F 109 16 142/107 96
05/01/25 11:04 05/01/25 11:04 05/01/25 11:04 05/01/25 11:04 05/01/25 11:04
I&O
04/30/25 05/01/25 05/02/25
06:59 06:59 06:59
Intake Total 3490 / 3490 2160 / 2160
Output Total 2915 / 2915 2775 / 2775
Balance 575 / 575 -615 / -615
Data Reviewed
-
Total Time Spent with Patient (in minutes): 41
Labs: Labs Reviewed by me
--- NOTE | 2025-05-01 12:37 | CM ---
CM following for return to [facility] when medically cleared. O2 needs being watched; per Dr. Asencio, oxygen needs are not anticipated.
Discharge Disposition- return to [facility]
Phone- [phone] Fax- [phone]
[2025-05-01] MEDS: MILK OF MAGNESIA 30 ML PO (13:31)
[2025-05-01] MEDS: MELATONIN 5 MG PO (23:26)
[2025-05-02 03:53] VITALS: BP 147/93
[2025-05-02 06:00] VITALS: BMI 28.2
[2025-05-02] MEDS: ZOSYN 50 IV (06:39)
[2025-05-02 06:41] LABS: Blood Urea Nitrogen 15 mg/dl (9-20); Calcium 9.1 mg/dl (8.4-10.2); Carbon Dioxide 31 mmol/L (22-30); Chloride 104 mmol/L (98-107); Estimated Creatinine Clearance > 125 ml/min; Glucose 107 mg/dl (70-99); Sodium 140 mmol/L (135-145); eGFR > 60.00
[2025-05-02 06:45] LABS: Hematocrit 48.1 % (39.0-52.0); Hemoglobin 16.6 g/dL (13.0-18.0); Mean Corp Hgb Conc. 34.5 g/dL (33.0-37.0); Mean Corpuscular Hgb 30.6 pg (27.0-31.0); Mean Corpuscular Volume 88.7 fL (80.0-94.0); Mean Platelet Volume 9.9 fL (7.4-10.4); Platelet Count 241 10^3/uL (130-400); Red Blood Cell Count 5.42 10^6/uL (4.70-6.10); White Blood Cell Count 8.3 10^3/uL (4.8-10.8)
[2025-05-02 07:44] VITALS: BP 136/101
[2025-05-02] MEDS: HEPARIN 5000 UNITS SC (09:34)
--- NOTE | 2025-05-02 10:58 | W.PN.HOSP.TC ---
Today's Communication/Plan
-
dc back to [facility]
Assessment / Plan
Assessment / Plan
45y M with no known PMH who presents [facility] ED from local [facility] for evaluation of respiratory distress.
Gen: NAD, AAOx3.
Eyes: EOMI, PERRLA, no scleral icterus.
Neck: supple.
CV: remains RRR, +S1/S2, no m/r/g.
Resp: B/L rhonchi.
Abd: +BS, soft, NT, ND
Skin: No rashes.
Neuro: CN 2-12 intact, non-focal.
Psych: Normal mood and affect.
04/29/25 11:44 Urine Legionella Urinary Antigen - Final
Negative for Legionella pneumophila Serogroup 1 antigen.
A negative result does not rule out the possiblity of
Legionella infection due to other serogroups or species of
Legionella. Clinical correlation is recommended.
04/29/25 11:44 Urine Streptococcus pneumoniae Antigen (M - Final
Negative for Streptococcus pneumoniae antigen.
A negative result does not exclude infection with
Streptococcus pneumoniae. Clinical correlation is
recommended.
04/28/25 21:58 Blood/Venous Blood Culture - Preliminary
No Growth in 24 hours- Final report to follow
04/28/25 21:23 Blood/Venous Blood Culture - Preliminary
No Growth in 24 hours- Final report to follow
04/29/25 07:41 Nose Nasal Screen MRSA (PCR) - Final
MRSA not detected - performed by PCR methodology.
04/28/25 22:28 Nasal Swab Influenza Types A & B (THOMAS) - Final
Negative for Influenza A & B, NAAT
Negative results must be combined with clinical observations
and patient history.
Nucleic Acid Amplification test (NAAT)performed on the
[employer] platform.
CXR: No acute disease of the chest. Limited inspiration.
CT Head: No acute intracranial abnormality.
CT chest: SEVERE BILATERAL PNEUMONIA.
Septic shock and acute Hypoxemic Respiratory Failure due to severe B/L PNA:
-p/w with leukocytosis, tachycardia, tachypnea
-with acute toxic metabolic encephalopathy and unresponsiveness on arrival it is very likely the patient aspirated prior to arrival (aspiration pneumonia)
-imaging above
-was on high flow, now on 1.5L NC O2
-was on Levophed, now off
-s/p IVFs
-COVID/Flu NEG
-strep/legionella UAgs NEG
-BCxs NGTD
-cont Zosyn day 03/09; switch to Augmentin at dc.
-speech eval noted, reg diet/thins
Acute toxic metabolic encephalopathy due to polysubstance abuse with suspected overdose:
-UDS opiates, tricyclics, amphetamines
-CT head in the ED without acute abnormality.
-Opioid overdose seems likely based on constricted pupils, unresponsiveness, on arrival
-Supportive care. Narcan PRN for hypoventilation.
-Monitor for evidence of seizure activity due to TCA overdose.
-Monitor for evidence of withdrawal symptoms/syndromes.
-currently AAOx3, resolved
RENALDO:
-resolved with IVFs
FULL/Heparin
More than 30 minutes spent in discharge including
Final examination of the patient
Summarizing hospital stay
Instructions for continuing care to all relevant caregivers
Preparation of discharge records, prescriptions, and referral forms
Total time spent (in minutes):41
Anticipated Discharge: Today
Subjective/Interval History
-
Date of Service: May 02, 2025
resting comfortably, no complaints at present
Objective Data
-
Labs:
Laboratory Results
05/02/25
05:52
WBC 8.3
Hgb 16.6
Hct 48.1
Plt Count 241
Sodium 140
Potassium 4.0
Chloride 104
Carbon Dioxide 31 H
BUN 15
Creatinine 0.7
Glucose 107 H
Calcium 9.1
Vital Signs:
Vital Signs
Temp Pulse Resp BP Pulse Ox
97.2 F 103 16 136/101 92
05/02/25 07:43 05/02/25 07:43 05/02/25 07:43 05/02/25 07:44 05/02/25 07:43
I&O
05/01/25 05/02/25 05/03/25
06:59 06:59 06:59
Intake Total 2160 / 2160 770 / 770
Output Total 2775 / 2775 2049 / 2049
Balance -615 / -615 -1280 / -1280
Data Reviewed
-
Total Time Spent with Patient (in minutes): 42
Labs: Labs Reviewed by me
--- NOTE | 2025-05-02 11:01 | W.DS.TRANS ---
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
-
Discharge Instructions:
Discharge Diagnosis/Procedures pneumonia, aspiration
Diet Regular
Activity As tolerated
Instructions:
Stand-Alone Forms:
Changes to Home Medications: No
Discharge Medications:
DC Medications w/original date entered in [employer]
amoxicillin 875 mg-potassium clavulanate 125 mg tablet 1 tab PO Q12H #14 tabs 05/02/25
Home Medication Changes
Pending Results: No
Total time spent discharging patient (in min): 42
[2025-05-02 11:18] VITALS: BP 140/105; PULSE 115; O2SAT 92
== END 2025-05-02 12:52 | DRG 871 ==
LOC: 3 WEST ACU 23:41
PROVIDERS: ADMITTING PHYSICIAN Hospitalist; ATTENDING PHYSICIAN Internal Medicine; CONSULT PHYSICIAN Internal Medicine Critical Care Medicine; EMERGENCY PHYSICIAN Emergency Medicine
DX: A41.89 Other specified sepsis (principal); J69.0 Pneumonitis due to inhalation of food and vomit; J96.01 Acute respiratory failure with hypoxia; R65.21 Severe sepsis with septic shock; G93.40 Encephalopathy, unspecified; N17.9 Acute kidney failure, unspecified; Z11.52 Encounter for screening for COVID-19; F19.10 Other psychoactive substance abuse, uncomplicated
CPT/HCPCS: 51702; 70450; 71045; 71275; 80048; 80053; 80076; 80306; 80307; 82077; 82550; 82805; 83605; 83735; 84100; 84443; 85025; 85027; 87040; 87449; 87502; 87641; 87811; 87899; 92610; 93005; 94640; 96361; 96365; 96375; 97116; 97163; 97167; 97530; 99291; Q9967